=== PATIENT | male | born 1945 | race Caucasian/White ===

== ENCOUNTER 2018-02-01 14:46 | Emergency (ER) | payer OTHER, MEDICARE ==
[~2018-02-01] VITALS: Ht 170.2 cm; Wt 73.0 kg
[~2018-02-01 14:46] MED LIST: BEDSMIS4; ENOX40P SQ; HYDR-3580 PO; LISI-360 PO; SERT50 PO; Z.0.WALKERFRONT
[2018-02-01 14:53] VITALS: BP 154/75; PULSE 66; RESP 16; TEMP 98.3; O2SAT 96
[2018-02-01 15:04] VITALS: BP_SYST 127; BP_SYST 140; BP_SYST 167; BP_DIAS 69; BP_DIAS 74; BP_DIAS 75; RESP 16; RESP 17; RESP 18
[2018-02-01] MEDS ORDERED: HYDR12.57 PO (15:07)
[2018-02-01] MEDS ORDERED: LISI10TA3 PO (15:07)
[2018-02-01 15:40] VITALS: RESP 16; O2SAT 99
[2018-02-01] MEDS ORDERED: SODIUM CHLORIDE 0.9% FLUSH 10 ML FLUSH IVF PRN (15:45)
[2018-02-01] MEDS ORDERED: ONDANSETRON ODT 4 MG TAB PO/SL ONE (15:45)
[2018-02-01] MEDS ORDERED: MECLIZINE HCL 25 MG TAB PO ONE (15:45)
[2018-02-01] MEDS ORDERED: SODIUM CHLORID 0.9% 500 ML INJ 500 ML IV ONE (15:45)
[2018-02-01 16:00] LABS: AUTOMATED NEUTROPHIL # 4.6 TH/MM3 (1.8-7.7); BASOPHIL # 0.1 TH/MM3 (0-0.2); EOSINOPHIL # 0.1 TH/MM3 (0-0.4); HEMATOCRIT 38.6 % (39.0-51.0); HEMOGLOBIN 13.5 GM/DL (13.0-17.0); LYMPH % 20.9 % (9.0-44.0); LYMPHOCYTE # 1.4 TH/MM3 (1.0-4.8); MEAN CELL VOLUME 85.6 FL (80.0-100.0); MEAN CORPUSCULAR HEMOGLOBIN 29.8 PG (27.0-34.0); MEAN CORPUSCULAR HGB CONC 34.9 % (32.0-36.0); MEAN PLATELET VOLUME 8.3 FL (7.0-11.0); MONO % 7.7 % (0.0-8.0); MONOCYTE # 0.5 TH/MM3 (0-0.9); NEUT % 69.4 % (16.0-70.0); PLATELET COUNT 246 TH/MM3 (150-450); RED BLOOD COUNT 4.51 MIL/MM3 (4.50-5.90); RED CELL DISTRIBUTION WIDTH 13.8 % (11.6-17.2); WHITE BLOOD COUNT 6.6 TH/MM3 (4.0-11.0)
[2018-02-01 16:10] LABS: PROTHROMBIN TIME - PATIENT 10.3 SEC (9.8-11.6)
[2018-02-01 16:21] LABS: ALBUMIN 4.3 GM/DL (3.4-5.0); ALT (GPT) 34 U/L (12-78); AST (GOT) 21 U/L (15-37); BICARBONATE 24.9 MEQ/L (21.0-32.0); BLOOD UREA NITROGEN 28 MG/DL (7-18); CALCIUM 9.2 MG/DL (8.5-10.1); CHLORIDE 103 MEQ/L (98-107); GLOMERULAR FILTRATION RATE 74 ML/MIN (>89); GLUCOSE,RANDOM 97 MG/DL (74-106); SODIUM (NA) 137 MEQ/L (136-145)
[2018-02-01 16:26] LABS: ALKALINE PHOSPHATASE 94 U/L (45-117); TOTAL BILIRUBIN ADULT 0.3 MG/DL (0.2-1.0)
--- NOTE | 2018-02-01 16:31 | RADRPT ---
EXAM DATE: 02/01/2018 4:13 PM EDT AGE/SEX: 72 years / Male INDICATIONS: Elevated blood pressure CLINICAL DATA: This is the patient's initial encounter. Patient reports that signs and symptoms have been present for 1 day and indicates a pain score of 0/10. MEDICAL/SURGICAL HISTORY: Hypertension. None. RADIATION DOSE: 34.86 CTDI (mGy) COMPARISON: No prior [facility] exams available for comparison. TECHNIQUE: CT of the head without contrast. Using automated exposure control and adjustment of the mA and/or kV according to patient size, radiation dose was kept as low as reasonably achievable to ob tain optimal diagnostic quality images. FINDINGS: Cerebrum: The ventricles are normal for age. No evidence of midline shift, mass lesion, hemorrhage or acute infarction. No extraaxial fluid collections are seen. Chronic white matter ischemic changes present. Posterior Fossa: The cerebellum and brainstem are intact. The 4th ventricle is midline. The cerebe llopontine angle is unremarkable. Extracranial: The visualized portion of the orbits is intact. Skull: The calvaria is intact. No evidence of skull fracture. CONCLUSION: 1. No acute intracranial abnormalities. Chronic white matter ischemic changes. Electronically signed by: Osvaldo Vega MD 02/01/2018 4:30 PM EDT
[2018-02-01 16:40] LABS: TROPONIN I LESS THAN 0.02 NG/ML (0.02-0.05)
[2018-02-01 17:00] VITALS: BP 160/79; PULSE 62; RESP 16; TEMP 97.8; O2SAT 97
--- NOTE | 2018-02-01 17:35 | PD ---
HPI Chief Complaint: Hypertension Time Seen by Provider: 15:10 Travel History International Travel<30 days: No Contact w/Intl Traveler<30days: No Traveled to known affect area: No History of Present Illness HPI Patient is a 9-year-old male who comes in due to blood pressure. He says that his blood pressure has been going to high into low in the past few days. He reports 3 weeks of dizziness, mostly when he stands. He says he has to sit on the edge of the bed for a while before he can stand up due to the dizziness. He saw his doctor around this time and was noted to have elevated blood pressure , so his lisinopril was increased to 20 mg and HCTZ was added. Since then he has been monitoring his blood pressure in the past few days he has noticed it dropping into the 90s systolic. They called the [place] nurse line who suggested he cut back the lisinopril to 10 mg again and take the HCTZ in the morning and the less than. He did that Thursday and Thursday and his pressures dropped into the 90s. Thursday and today, he is only taking the HCTZ and his blood pressure has remained stable in the 1 teens to 150 region. He denies any headache. He denies nausea or vomiting. He denies any blurred vision. He denies any chest pain or shortness of breath. Severity is mild to moderate. PFSH Past Medical History Cardiovascular Problems: Yes High Cholesterol: Yes Diminished Hearing: Yes Hypertension: Yes Tetanus Vaccination: > 5 Years Influenza Vaccination: Yes Social History Alcohol Use: No Tobacco Use: Yes (QUIT 1 YEARS AGO) Substance Use: No Allergies-Medications (Allergen,Severity, Reaction): Coded Allergies: No Known Allergies (Verified Adverse Reaction, Unknown, 02/01/18) Reported Meds & Prescriptions Reported Meds & Active Scripts Active Reported Hydrochlorothiazide 12.5 Mg Cap 12.5 Mg PO DAILY Lisinopril 10 Mg Tab 10 Mg PO DAILY Review of Systems Except as stated in HPI: all other systems reviewed are Neg General / Constitutional: No: Fever, Chills Eyes: No: Blurred Vision HENT: Positive: Lightheadedness, No: Headaches Cardiovascular: No: Chest Pain or Discomfort Respiratory: No: Shortness of Breath Gastrointestinal: No: Nausea, Vomiting Musculoskeletal: No: Myalgias Skin: No Rash, No Change in Pigmentation Neurologic: Positive: Dizziness Physical Exam Narrative GENERAL: Awake and alert, in no acute distress. SKIN: Focused skin assessment warm/dry. HEAD: Atraumatic. Normocephalic. EYES: Pupils equal and round. No scleral icterus. Extraocular movements intact. ENT: Mucous membranes pink and moist. NECK: Trachea midline. No JVD. CARDIOVASCULAR: Regular rate and rhythm. No murmur appreciated. RESPIRATORY: No accessory muscle use. Clear to auscultation. Breath sounds equal bilaterally. GASTROINTESTINAL: Abdomen soft, non-tender, nondistended. MUSCULOSKELETAL: No obvious deformities. No clubbing. No cyanosis. No edema. NEUROLOGICAL: Awake and alert. No obvious cranial nerve deficits. Motor grossly within normal limits. Normal speech. Normal cerebellar function testing. PSYCHIATRIC: Appropriate mood and affect; insight and judgment normal. Data Data Last Documented VS Vital Signs Date Time Temp Pulse Resp B/P (MAP) Pulse Ox O2 Delivery O2 Flow Rate FiO2 02/01/18 17:00 97.8 62 16 160/79 (106) 97 Room Air Orders Orders Electrocardiogram (02/01/18 15:39) Complete Blood Count With Diff (02/01/18 15:39) Comprehensive Metabolic Panel (02/01/18 15:39) Troponin I (02/01/18 15:39) Act Partial Throm Time (Ptt) (02/01/18 15:39) Prothrombin Time / Inr (Pt) (02/01/18 15:39) Ct Brain W/O Iv Contrast(Rout) (02/01/18 15:39) Ecg Monitoring (02/01/18 15:39) Iv Access Insert/Monitor (02/01/18 15:39) Oximetry (02/01/18 15:39) Meclizine (Antivert) (02/01/18 15:45) Ondansetron Odt (Zofran Odt) (02/01/18 15:45) Sodium Chloride 0.9% Flush (Ns Flush) (02/01/18 15:45) Sodium Chlorid 0.9% 500 Ml Inj (Ns 500 M (02/01/18 15:45) Labs Laboratory Tests Test 02/01/18 15:50 White Blood Count 6.6 TH/MM3 Red Blood Count 4.51 MIL/MM3 Hemoglobin 13.5 GM/DL Hematocrit 38.6 % Mean Corpuscular Volume 85.6 FL Mean Corpuscular Hemoglobin 29.8 PG Mean Corpuscular Hemoglobin Concent 34.9 % Red Cell Distribution Width 13.8 % Platelet Count 246 TH/MM3 Mean Platelet Volume 8.3 FL Neutrophils (%) (Auto) 69.4 % Lymphocytes (%) (Auto) 20.9 % Monocytes (%) (Auto) 7.7 % Eosinophils (%) (Auto) 1.0 % Basophils (%) (Auto) 1.0 % Neutrophils # (Auto) 4.6 TH/MM3 Lymphocytes # (Auto) 1.4 TH/MM3 Monocytes # (Auto) 0.5 TH/MM3 Eosinophils # (Auto) 0.1 TH/MM3 Basophils # (Auto) 0.1 TH/MM3 CBC Comment DIFF FINAL Differential Comment Prothrombin Time 10.3 SEC Prothromb Time International Ratio 1.0 RATIO Activated Partial Thromboplast Time 30.8 SEC Blood Urea Nitrogen 28 MG/DL Creatinine 1.00 MG/DL Random Glucose 97 MG/DL Total Protein 8.0 GM/DL Albumin 4.3 GM/DL Calcium Level 9.2 MG/DL Alkaline Phosphatase 94 U/L Aspartate Amino Transf (AST/SGOT) 21 U/L Alanine Aminotransferase (ALT/SGPT) 34 U/L Total Bilirubin 0.3 MG/DL Sodium Level 137 MEQ/L Potassium Level 3.8 MEQ/L Chloride Level 103 MEQ/L Carbon Dioxide Level 24.9 MEQ/L Anion Gap 9 MEQ/L Estimat Glomerular Filtration Rate 74 ML/MIN Troponin I LESS THAN 0.02 NG/ML MDM Medical Decision Making Medical Screen Exam Complete: Yes Emergency Medical Condition: Yes Medical Record Reviewed: Yes Interpretation(s) ECG shows sinus bradycardia at a rate of 56, no ST elevation or depression, normal intervals Differential Diagnosis Dehydration versus medication reaction versus orthostatic hypotension Narrative Course Patient is a 72-year-old male who comes in due to blood pressure concerns and complaints of dizziness. Exam shows no neurologic abnormalities. Orthostatic vital signs show significant drop in blood pressure from laying down to standing. IV established, labs sent. Labs show a BUN of 28 and a creatinine of 1. CT head shows no acute abnormalities. Last [address] 02/01/18 8850 Signed Impressions: CONCLUSION: 1. No acute intracranial abnormalities. Chronic white matter ischemic changes. Patient given IV fluids, Zofran, meclizine. He reports no further dizziness on standing. On review of patient's records of blood pressure readings, it seems that the HCTZ alone is controlling his blood pressure well. He is advised to hold his lisinopril for now, and increase his water intake. He is advised to just take his BP in the morning and at night, instead of so many times throughout the day ; or if he is symptomatic. He is advised to return at any time for any worsening or concerning symptoms. Advised to follow up with his PCP as soon as possible. He and his are comfortable with this plan. Diagnosis Primary Impression: Orthostatic hypotension Patient Instructions: General Instructions, Hypotension (ED) Additional Instructions: Continue to hold her lisinopril and monitor blood pressure at night and in the morning. Increase her water intake. Follow-up with your doctor soon as possible. Return anytime for any worsening symptoms. Disposition: 01 DISCHARGE HOME Condition: Stable Mily Reyes MD February 01, 2018 17:34
[2018-02-01 17:45] VITALS: BP 150/72; TEMP 97.8
--- NOTE | 2018-02-02 14:12 | EKG ---
Date Performed: 02/01/2018 Time Performed: 15:49:07 PTAGE: 72 years EKG: SINUS BRADYCARDIA BORDERLINE ECG PREVIOUS TRACING : 03/28/2015 11.47 Since the previous tracing, no significant change noted DOCTOR: Tyrese Jimenez Interpretating Date/Time 02/02/2018 14:05:44
== END 2018-02-01 17:45 | disposition home or self-care (01) ==
LOC: NEPE 14:46
DX: I95.1 Orthostatic hypotension (principal); I10 Essential (primary) hypertension; R00.1 Bradycardia, unspecified; R94.31 Abnormal electrocardiogram [ECG] [EKG]
CPT/HCPCS: 70450; 80053; 84484; 85025; 85610; 85730; 93005; 96360; 99285; J7040